=== PATIENT | male | born 1955 | race African-American/Black ===

== ENCOUNTER 2021-05-07 12:50 | Inpatient (IN) ==
[2021-05-07] MEDS ORDERED: SODIUM CHLORIDE 0.9% 1,000 ML IV STA (12:58)
[2021-05-07] MEDS ORDERED: CLINDAMYCIN INJ 600 MG/50 ML PREMIX IV STA (14:10)
[2021-05-07] MEDS ORDERED: LEVOFLOXACIN INJ 750 MG in PREMIX 1 EACH IV STA (14:10)
[2021-05-07 14:15] LABS: Basophils % 0.1 % (0.0-0.8); Eosinophils # 0.3 10*3/uL (0.0-0.87); Eosinophils % 2.9 % (0.00-10.9); Hematocrit 36.4 VOL% (42.0-52.0); Hemoglobin 10.9 GM/DL (14.0-18.0); Immature Granulocytes % 0.6 %; Immature Granulocytes Absolute 0.05 #; Lymphocytes # 1.1 10*3/uL (1.4-4.0); Lymphocytes % 13.3 % (21.2-54.2); Mean Corpuscular HGB Conc 29.9 GM/DL (32-36); Mean Corpuscular Volume 105.2 FL (87-102); Monocytes % 8.4 % (1.7-12.7); Neutrophils % 74.7 % (38.7-73.9); Platelet Count 312 T/CUMM (130-400); Red Blood Count 3.46 MC/CUMM (3.8-5.5); Red Cell Distribution Width 13.2 % (9.3-17.3); White Blood Count 8.5 T/CUMM (4-12)
[2021-05-07 14:35] LABS: Albumin 2.8 G/DL (3.4-5.0); Bilirubin,Total 0.6 MG/DL (0.20-1.00); Calcium 9.7 MG/DL (8.5-10.1); Osmolality,Calculated 307.1 MOS/KG (273-304); Total Protein 8.3 G/DL (6.4-8.2)
[2021-05-07] MEDS ORDERED: GLUCAGON 1 MG VIAL IM PRN (15:20)
[2021-05-07] MEDS ORDERED: DEXTROSE 50% 25 GM/50 ML VIAL IV PRN (15:20)
[2021-05-07] MEDS ORDERED: ONDANSETRON 4 MG/2 ML VIAL IV PRN (15:20)
[2021-05-07] MEDS ORDERED: SODIUM CHLORIDE 0.9% 1,000 ML IV SCH (15:30)
[2021-05-07] MEDS ORDERED: VANCOMYCIN INJ 1,000 MG in SODIUM CHLORIDE 0.9% 250 ML IV SCH (21:00)
[2021-05-07] MEDS: PIPERACILLIN/TAZOBACTAM 3,375 MG in SODIUM CHLORIDE 0.9% 100 ML IV SCH (22:03)
[2021-05-07] MEDS ORDERED: CLINDAMYCIN INJ 600 MG/50 ML PREMIX IV ONE (23:00)
[2021-05-08] MEDS: DEXTROSE 5% NACL 0.45% 1,000 ML IV SCH ×2 (03:32→14:27)
[2021-05-08] MEDS: PIPERACILLIN/TAZOBACTAM 3,375 MG in SODIUM CHLORIDE 0.9% 100 ML IV SCH ×3 (03:34→16:33)
[2021-05-08 06:02] LABS: Basophils % 0.4 % (0.0-0.8); Eosinophils # 0.3 10*3/uL (0.0-0.87); Eosinophils % 3.2 % (0.00-10.9); Hematocrit 41.1 VOL% (42.0-52.0); Hemoglobin 12.4 GM/DL (14.0-18.0); Immature Granulocytes % 0.3 %; Immature Granulocytes Absolute 0.02 #; Lymphocytes # 1.5 10*3/uL (1.4-4.0); Lymphocytes % 19.2 % (21.2-54.2); Mean Corpuscular HGB Conc 30.2 GM/DL (32-36); Mean Platelet Volume 11.5 FL (9.6-12.0); Monocytes % 10.1 % (1.7-12.7); Neutrophils % 66.8 % (38.7-73.9); Platelet Count 264 T/CUMM (130-400); Red Blood Count 3.84 MC/CUMM (3.8-5.5); Red Cell Distribution Width 13.1 % (9.3-17.3); White Blood Count 7.9 T/CUMM (4-12)
[2021-05-08 06:38] LABS: Calcium 9.6 MG/DL (8.5-10.1); Osmolality,Calculated 309.6 MOS/KG (273-304); Potassium 4.8 MMOL/L (3.5-5.1)
[2021-05-08] MEDS ORDERED: LIDOCAINE 1%/EPI INJ 20 ML VIAL ONE (06:50)
[2021-05-08] MEDS ORDERED: BUPIVACAINE MPF 0.25% 30 ML VIAL ONE (06:50)
[2021-05-08] MEDS ORDERED: MIDAZOLAM 2 MG/2 ML VIAL ONE (07:27)
[2021-05-08] MEDS ORDERED: PHENYLEPHRINE 1 MG/10 ML SYRINGE IV ONE (07:40)
[2021-05-08] MEDS ORDERED: propofoL 200 MG/20 ML VIAL IV ONE (07:46)
[2021-05-08] MEDS ORDERED: SEVOFLURANE 1 UNIT/15 MINUTE INH ONE (07:46)
[2021-05-08] MEDS ORDERED: fentaNYL 100 MCG/2 ML VIAL ONE (07:46)
[2021-05-08] MEDS ORDERED: ONDANSETRON 4 MG/2 ML VIAL ONE (07:46)
[2021-05-08] MEDS ORDERED: ACETAMINOPHEN 325 MG TABLET PO PRN (12:07)
[2021-05-08] MEDS ORDERED: BETHANECHOL 10 MG TABLET PO SCH (15:00)
[2021-05-08] MEDS: BETHANECHOL 10 MG TABLET PO SCH ×2 (16:24→22:20)
[2021-05-08] MEDS: levETIRAcetam 500 MG TABLET PO SCH ×2 (16:25→22:19)
[2021-05-08] MEDS: METOCLOPRAMIDE 5 MG TABLET PO SCH ×2 (16:25→22:20)
[2021-05-08] MEDS: QUEtiapine 25 MG TABLET PO SCH (22:20)
[2021-05-08] MEDS: DEXTROSE 5% 1,000 ML IV SCH (22:22)
[2021-05-09] MEDS: PIPERACILLIN/TAZOBACTAM 3,375 MG in SODIUM CHLORIDE 0.9% 100 ML IV SCH ×3 (06:00→16:40)
[2021-05-09 07:09] LABS: Basophils % 0.1 % (0.0-0.8); Eosinophils # 0.2 10*3/uL (0.0-0.87); Eosinophils % 3.6 % (0.00-10.9); Hematocrit 40.8 VOL% (42.0-52.0); Hemoglobin 12.4 GM/DL (14.0-18.0); Immature Granulocytes % 0.7 %; Immature Granulocytes Absolute 0.05 #; Lymphocytes # 1.7 10*3/uL (1.4-4.0); Lymphocytes % 25.4 % (21.2-54.2); Mean Corpuscular HGB Conc 30.4 GM/DL (32-36); Mean Corpuscular Volume 104.6 FL (87-102); Mean Platelet Volume 11.1 FL (9.6-12.0); Monocytes % 8.8 % (1.7-12.7); Neutrophils % 61.4 % (38.7-73.9); Platelet Count 298 T/CUMM (130-400); Red Cell Distribution Width 12.8 % (9.3-17.3); White Blood Count 6.7 T/CUMM (4-12)
[2021-05-09 07:24] LABS: Calcium 9.5 MG/DL (8.5-10.1); Osmolality,Calculated 313.2 MOS/KG (273-304); Potassium 4.2 MMOL/L (3.5-5.1)
[2021-05-09] MEDS: BETHANECHOL 10 MG TABLET PO SCH ×3 (10:00→21:06)
[2021-05-09] MEDS: levETIRAcetam 500 MG TABLET PO SCH ×2 (10:00→21:05)
[2021-05-09] MEDS: QUEtiapine 25 MG TABLET PO SCH ×2 (10:00→21:06)
[2021-05-09] MEDS: METOCLOPRAMIDE 5 MG TABLET PO SCH ×4 (10:00→21:06)
[2021-05-09] MEDS: SODIUM HYPOCHLORITE 0.25% IRRIG 473 ML BOTTLE TOP SCH (11:11)
[2021-05-09] MEDS: DEXTROSE 5% 1,000 ML IV SCH (11:27)
[2021-05-09] MEDS ORDERED: QUEtiapine 25 MG TABLET PO ONE (13:00)
[2021-05-09] MEDS ORDERED: ACETAMINOPHEN 325 MG/10.15 ML UDCUP PO PRN (14:03)
[2021-05-09] MEDS ORDERED: DEXTROSE 50% 25 GM/50 ML VIAL IV PRN (16:22)
[2021-05-10] MEDS: PIPERACILLIN/TAZOBACTAM 3,375 MG in SODIUM CHLORIDE 0.9% 100 ML IV SCH ×2 (01:04→11:34)
[2021-05-10 07:01] LABS: Basophils % 0.2 % (0.0-0.8); Eosinophils # 0.3 10*3/uL (0.0-0.87); Eosinophils % 5.1 % (0.00-10.9); Hematocrit 36.2 VOL% (42.0-52.0); Hemoglobin 11.1 GM/DL (14.0-18.0); Immature Granulocytes % 0.2 %; Immature Granulocytes Absolute 0.01 #; Lymphocytes # 1.7 10*3/uL (1.4-4.0); Lymphocytes % 31.4 % (21.2-54.2); Mean Corpuscular HGB Conc 30.7 GM/DL (32-36); Mean Corpuscular Volume 104.3 FL (87-102); Mean Platelet Volume 11.1 FL (9.6-12.0); Monocytes % 8.6 % (1.7-12.7); Neutrophils % 54.5 % (38.7-73.9); Platelet Count 282 T/CUMM (130-400); Red Blood Count 3.47 MC/CUMM (3.8-5.5); Red Cell Distribution Width 12.7 % (9.3-17.3); White Blood Count 5.3 T/CUMM (4-12)
[2021-05-10] MEDS: QUEtiapine 25 MG TABLET PO SCH ×2 (10:42→22:45)
[2021-05-10] MEDS: METOCLOPRAMIDE 5 MG TABLET PO SCH ×2 (10:42→13:52)
[2021-05-10] MEDS: levETIRAcetam 500 MG TABLET PO SCH ×2 (10:43→22:45)
[2021-05-10] MEDS: SODIUM HYPOCHLORITE 0.25% IRRIG 473 ML BOTTLE TOP SCH (10:43)
[2021-05-10 11:15] LABS: Calcium 9.2 MG/DL (8.5-10.1); Osmolality,Calculated 301.1 MOS/KG (273-304); Potassium 4.2 MMOL/L (3.5-5.1)
[2021-05-10] MEDS: BETHANECHOL 10 MG TABLET PO SCH ×3 (12:35→22:46)
[2021-05-10] MEDS: LINEZOLID 600 MG TABLET PO SCH (22:45)
[2021-05-11 06:31] LABS: Basophils % 0.5 % (0.0-0.8); Eosinophils # 0.2 10*3/uL (0.0-0.87); Eosinophils % 4.4 % (0.00-10.9); Hematocrit 38.1 VOL% (42.0-52.0); Hemoglobin 11.4 GM/DL (14.0-18.0); Immature Granulocytes % 0.2 %; Immature Granulocytes Absolute 0.01 #; Lymphocytes # 1.4 10*3/uL (1.4-4.0); Mean Corpuscular HGB Conc 29.9 GM/DL (32-36); Mean Corpuscular Volume 102.7 FL (87-102); Mean Platelet Volume 10.7 FL (9.6-12.0); Monocytes % 2.8 % (1.7-12.7); Neutrophils % 61.1 % (38.7-73.9); Platelet Count 282 T/CUMM (130-400); Red Blood Count 3.71 MC/CUMM (3.8-5.5); Red Cell Distribution Width 12.5 % (9.3-17.3); White Blood Count 4.4 T/CUMM (4-12)
[2021-05-11 06:45] LABS: Calcium 9.2 MG/DL (8.5-10.1); Potassium 4.2 MMOL/L (3.5-5.1)
[2021-05-11] MEDS: QUEtiapine 25 MG TABLET PO SCH (09:14)
[2021-05-11] MEDS: LINEZOLID 600 MG TABLET PO SCH (09:14)
[2021-05-11] MEDS: levETIRAcetam 500 MG TABLET PO SCH (09:14)
[2021-05-11] MEDS: SODIUM HYPOCHLORITE 0.25% IRRIG 473 ML BOTTLE TOP SCH (09:15)
[2021-05-11] MEDS: BETHANECHOL 10 MG TABLET PO SCH (09:15)
[2021-05-11 12:02] VITALS: BP 112/73
== END 2021-05-11 14:00 | disposition home health service (06) | DRG 987 ==
LOC: N.ED 12:50 → N.EDINP 14:35 → N.5E 19:09
PROVIDERS: ADMIT Hospitalist; ATTEND Hospitalist

== ENCOUNTER 2021-06-11 13:09 | Inpatient (IN) ==
[2021-06-11 14:51] LABS: Basophils % 0.5 % (0.0-0.8); Eosinophils # 0.3 10*3/uL (0.0-0.87); Eosinophils % 4.7 % (0.00-10.9); Hematocrit 41.6 VOL% (42.0-52.0); Hemoglobin 13.7 GM/DL (14.0-18.0); Immature Granulocytes % 0.3 %; Immature Granulocytes Absolute 0.02 #; Lymphocytes # 1.7 10*3/uL (1.4-4.0); Lymphocytes % 29.2 % (21.2-54.2); Mean Corpuscular HGB Conc 32.9 GM/DL (32-36); Mean Corpuscular Volume 92.2 FL (87-102); Mean Platelet Volume 8.8 FL (9.6-12.0); Monocytes % 8.9 % (1.7-12.7); Neutrophils % 56.4 % (38.7-73.9); Platelet Count 334 T/CUMM (130-400); Red Blood Count 4.51 MC/CUMM (3.8-5.5); Red Cell Distribution Width 12.6 % (9.3-17.3); White Blood Count 5.7 T/CUMM (4-12)
[2021-06-11 15:28] LABS: Albumin 3.1 G/DL (3.4-5.0); Bilirubin,Total 0.4 MG/DL (0.20-1.00); Calcium 10.1 MG/DL (8.5-10.1); Osmolality,Calculated 263.4 MOS/KG (273-304); Potassium 4.3 MMOL/L (3.5-5.1); Total Protein 7.9 G/DL (6.4-8.2)
[2021-06-11] MEDS ORDERED: ONDANSETRON 4 MG/2 ML VIAL IV PRN (18:32)
[2021-06-11] MEDS ORDERED: ACETAMINOPHEN 325 MG TABLET PO PRN (18:32)
[2021-06-11] MEDS ORDERED: PIPERACILLIN/TAZOBACTAM 3,375 MG VIAL IV ONE (18:37)
[2021-06-11] MEDS: SODIUM CHLORIDE 0.9% 1,000 ML IV SCH (22:33)
[2021-06-11] MEDS: PIPERACILLIN/TAZOBACTAM 3,375 MG in SODIUM CHLORIDE 0.9% 100 ML IV SCH (22:34)
[2021-06-11] MEDS: DOCUSATE SODIUM 100 MG CAPSULE PO SCH (22:34)
[2021-06-12] MEDS: PIPERACILLIN/TAZOBACTAM 3,375 MG in SODIUM CHLORIDE 0.9% 100 ML IV SCH ×3 (04:38→21:22)
[2021-06-12] MEDS: SODIUM CHLORIDE 0.9% 1,000 ML IV SCH ×3 (04:38→17:33)
[2021-06-12 05:32] LABS: Basophils % 0.3 % (0.0-0.8); Eosinophils # 0.3 10*3/uL (0.0-0.87); Eosinophils % 4.9 % (0.00-10.9); Hematocrit 37.7 VOL% (42.0-52.0); Hemoglobin 12.2 GM/DL (14.0-18.0); Immature Granulocytes % 0.2 %; Immature Granulocytes Absolute 0.01 #; Lymphocytes # 1.7 10*3/uL (1.4-4.0); Lymphocytes % 28.1 % (21.2-54.2); Mean Corpuscular HGB Conc 32.4 GM/DL (32-36); Mean Corpuscular Volume 92.6 FL (87-102); Mean Platelet Volume 8.8 FL (9.6-12.0); Monocytes % 9.1 % (1.7-12.7); Neutrophils % 57.4 % (38.7-73.9); Platelet Count 308 T/CUMM (130-400); Red Blood Count 4.07 MC/CUMM (3.8-5.5); Red Cell Distribution Width 12.5 % (9.3-17.3); White Blood Count 6.2 T/CUMM (4-12)
[2021-06-12 06:01] LABS: Calcium 8.8 MG/DL (8.5-10.1); Osmolality,Calculated 259.7 MOS/KG (273-304); Potassium 3.8 MMOL/L (3.5-5.1)
[2021-06-12] MEDS ORDERED: ACETAMINOPHEN 325 MG/10.15 ML UDCUP PO PRN (07:37)
[2021-06-12] MEDS ORDERED: BETHANECHOL 10 MG TABLET PO SCH (08:00)
[2021-06-12] MEDS: PANTOPRAZOLE 40 MG TABLET PO SCH (08:50)
[2021-06-12] MEDS: METOCLOPRAMIDE 5 MG TABLET PO SCH ×4 (08:50→21:26)
[2021-06-12] MEDS: DOCUSATE SODIUM 100 MG CAPSULE PO SCH ×2 (08:50→21:26)
[2021-06-12] MEDS: QUEtiapine 25 MG TABLET PO SCH ×2 (08:50→21:25)
[2021-06-12] MEDS ORDERED: levETIRAcetam 500 MG TABLET PO SCH (09:00)
[2021-06-12] MEDS ORDERED: INFLUENZA VIRUS VACCINE 0.5 ML SYRINGE IM ONE (10:54)
[2021-06-12] MEDS: SODIUM HYPOCHLORITE 0.25% IRRIG 473 ML BOTTLE TOP SCH (11:40)
[2021-06-12] MEDS: levETIRAcetam 500 MG TABLET PO SCH (21:24)
[2021-06-12] MEDS: MEMANTINE 5 MG TABLET PO SCH (21:26)
[2021-06-13] MEDS: PIPERACILLIN/TAZOBACTAM 3,375 MG in SODIUM CHLORIDE 0.9% 100 ML IV SCH ×3 (04:21→21:37)
[2021-06-13] MEDS: SODIUM CHLORIDE 0.9% 1,000 ML IV SCH ×3 (04:31→17:38)
[2021-06-13 05:44] LABS: Calcium 8.4 MG/DL (8.5-10.1); Potassium 3.5 MMOL/L (3.5-5.1)
[2021-06-13] MEDS: METOCLOPRAMIDE 5 MG TABLET PO SCH ×4 (08:54→21:38)
[2021-06-13] MEDS: QUEtiapine 25 MG TABLET PO SCH ×2 (08:54→21:38)
[2021-06-13] MEDS: levETIRAcetam 500 MG TABLET PO SCH ×2 (08:54→21:37)
[2021-06-13] MEDS: MEMANTINE 5 MG TABLET PO SCH ×2 (08:54→21:38)
[2021-06-13] MEDS: DOCUSATE SODIUM 100 MG CAPSULE PO SCH ×2 (08:54→21:37)
[2021-06-13] MEDS: PANTOPRAZOLE 40 MG TABLET PO SCH (08:54)
[2021-06-13] MEDS: SODIUM HYPOCHLORITE 0.25% IRRIG 473 ML BOTTLE TOP SCH (09:52)
[2021-06-14] MEDS: SODIUM CHLORIDE 0.9% 1,000 ML IV SCH ×2 (02:20→14:00)
[2021-06-14] MEDS: PIPERACILLIN/TAZOBACTAM 3,375 MG in SODIUM CHLORIDE 0.9% 100 ML IV SCH ×2 (05:01→12:51)
[2021-06-14 06:16] LABS: Calcium 8.7 MG/DL (8.5-10.1); Osmolality,Calculated 273.7 MOS/KG (273-304); Potassium 3.5 MMOL/L (3.5-5.1)
[2021-06-14] MEDS: SODIUM HYPOCHLORITE 0.25% IRRIG 473 ML BOTTLE TOP SCH (09:48)
[2021-06-14] MEDS: MEMANTINE 5 MG TABLET PO SCH ×2 (09:48→21:20)
[2021-06-14] MEDS: levETIRAcetam 500 MG TABLET PO SCH ×2 (09:48→21:20)
[2021-06-14] MEDS: DOCUSATE SODIUM 100 MG CAPSULE PO SCH ×2 (09:48→21:20)
[2021-06-14] MEDS: PANTOPRAZOLE 40 MG TABLET PO SCH (09:49)
[2021-06-14] MEDS: QUEtiapine 25 MG TABLET PO SCH ×2 (09:49→21:20)
[2021-06-14] MEDS: METOCLOPRAMIDE 5 MG TABLET PO SCH ×4 (10:47→21:20)
[2021-06-14] MEDS: ceFAZolin 2,000 MG/50 ML DUPLEX IV SCH ×2 (17:21→21:21)
[2021-06-15] MEDS: ceFAZolin 2,000 MG/50 ML DUPLEX IV SCH ×3 (06:08→22:05)
[2021-06-15] MEDS: SODIUM CHLORIDE 0.9% 1,000 ML IV SCH ×2 (06:47→16:54)
[2021-06-15 07:07] LABS: Calcium 8.9 MG/DL (8.5-10.1); Osmolality,Calculated 273.5 MOS/KG (273-304); Potassium 3.7 MMOL/L (3.5-5.1)
[2021-06-15] MEDS: METOCLOPRAMIDE 5 MG TABLET PO SCH ×4 (08:12→22:02)
[2021-06-15] MEDS: MEMANTINE 5 MG TABLET PO SCH ×2 (08:12→22:02)
[2021-06-15] MEDS: PANTOPRAZOLE 40 MG TABLET PO SCH (08:17)
[2021-06-15] MEDS: levETIRAcetam 500 MG TABLET PO SCH ×2 (08:18→22:02)
[2021-06-15] MEDS: DOCUSATE SODIUM 100 MG CAPSULE PO SCH ×2 (08:18→22:02)
[2021-06-15] MEDS: QUEtiapine 25 MG TABLET PO SCH ×2 (08:19→22:03)
[2021-06-15 08:54] LABS: Basophils % 0.8 % (0.0-0.8); Eosinophils # 0.2 10*3/uL (0.0-0.87); Eosinophils % 4.2 % (0.00-10.9); Hematocrit 36.2 VOL% (42.0-52.0); Hemoglobin 11.6 GM/DL (14.0-18.0); Immature Granulocytes % 0.4 %; Immature Granulocytes Absolute 0.02 #; Lymphocytes # 1.7 10*3/uL (1.4-4.0); Lymphocytes % 33.9 % (21.2-54.2); Mean Corpuscular Volume 95.3 FL (87-102); Mean Platelet Volume 9.2 FL (9.6-12.0); Monocytes % 11.9 % (1.7-12.7); Neutrophils % 48.8 % (38.7-73.9); Platelet Count 319 T/CUMM (130-400); Red Cell Distribution Width 12.6 % (9.3-17.3)
[2021-06-15] MEDS: SODIUM HYPOCHLORITE 0.25% IRRIG 473 ML BOTTLE TOP SCH (18:34)
[2021-06-16] MEDS: SODIUM CHLORIDE 0.9% 1,000 ML IV SCH ×2 (04:00→15:18)
[2021-06-16] MEDS: ceFAZolin 2,000 MG/50 ML DUPLEX IV SCH ×3 (05:47→22:25)
[2021-06-16 06:27] LABS: Basophils % 0.4 % (0.0-0.8); Eosinophils # 0.2 10*3/uL (0.0-0.87); Eosinophils % 4.4 % (0.00-10.9); Hematocrit 33.4 VOL% (42.0-52.0); Hemoglobin 10.9 GM/DL (14.0-18.0); Immature Granulocytes % 0.2 %; Immature Granulocytes Absolute 0.01 #; Lymphocytes # 1.6 10*3/uL (1.4-4.0); Lymphocytes % 28.5 % (21.2-54.2); Mean Corpuscular HGB Conc 32.6 GM/DL (32-36); Mean Corpuscular Volume 94.1 FL (87-102); Mean Platelet Volume 9.4 FL (9.6-12.0); Neutrophils % 57.5 % (38.7-73.9); Platelet Count 317 T/CUMM (130-400); Red Blood Count 3.55 MC/CUMM (3.8-5.5); Red Cell Distribution Width 12.6 % (9.3-17.3); White Blood Count 5.5 T/CUMM (4-12)
[2021-06-16 06:42] LABS: Calcium 8.9 MG/DL (8.5-10.1); Osmolality,Calculated 278.3 MOS/KG (273-304); Potassium 3.7 MMOL/L (3.5-5.1)
[2021-06-16] MEDS: METOCLOPRAMIDE 5 MG TABLET PO SCH ×4 (08:00→20:32)
[2021-06-16] MEDS: MEMANTINE 5 MG TABLET PO SCH ×2 (08:01→20:32)
[2021-06-16] MEDS: QUEtiapine 25 MG TABLET PO SCH ×2 (08:01→20:32)
[2021-06-16] MEDS: PANTOPRAZOLE 40 MG TABLET PO SCH (08:02)
[2021-06-16] MEDS: DOCUSATE SODIUM 100 MG CAPSULE PO SCH ×2 (08:03→20:32)
[2021-06-16] MEDS: levETIRAcetam 500 MG TABLET PO SCH ×2 (08:04→20:32)
[2021-06-16] MEDS: SODIUM HYPOCHLORITE 0.25% IRRIG 473 ML BOTTLE TOP SCH (10:21)
[2021-06-17] MEDS: SODIUM CHLORIDE 0.9% 1,000 ML IV SCH ×2 (02:19→12:38)
[2021-06-17 05:57] LABS: Basophils % 0.6 % (0.0-0.8); Eosinophils # 0.3 10*3/uL (0.0-0.87); Eosinophils % 6.9 % (0.00-10.9); Hematocrit 31.9 VOL% (42.0-52.0); Hemoglobin 10.4 GM/DL (14.0-18.0); Immature Granulocytes % 0.2 %; Immature Granulocytes Absolute 0.01 #; Lymphocytes # 1.8 10*3/uL (1.4-4.0); Lymphocytes % 36.4 % (21.2-54.2); Mean Corpuscular HGB Conc 32.6 GM/DL (32-36); Mean Corpuscular Volume 93.8 FL (87-102); Mean Platelet Volume 9.3 FL (9.6-12.0); Monocytes % 11.2 % (1.7-12.7); Neutrophils % 44.7 % (38.7-73.9); Platelet Count 284 T/CUMM (130-400); Red Cell Distribution Width 12.7 % (9.3-17.3); White Blood Count 4.8 T/CUMM (4-12)
[2021-06-17] MEDS: ceFAZolin 2,000 MG/50 ML DUPLEX IV SCH ×3 (06:05→21:48)
[2021-06-17 06:16] LABS: Calcium 8.6 MG/DL (8.5-10.1); Osmolality,Calculated 277.3 MOS/KG (273-304); Potassium 3.7 MMOL/L (3.5-5.1)
[2021-06-17] MEDS: DOCUSATE SODIUM 100 MG CAPSULE PO SCH ×2 (08:26→20:48)
[2021-06-17] MEDS: MEMANTINE 5 MG TABLET PO SCH ×2 (08:27→20:48)
[2021-06-17] MEDS: METOCLOPRAMIDE 5 MG TABLET PO SCH ×4 (08:27→20:48)
[2021-06-17] MEDS: QUEtiapine 25 MG TABLET PO SCH ×2 (08:27→20:48)
[2021-06-17] MEDS: levETIRAcetam 500 MG TABLET PO SCH ×2 (08:27→20:48)
[2021-06-17] MEDS: PANTOPRAZOLE 40 MG TABLET PO SCH (08:28)
[2021-06-17] MEDS: SODIUM HYPOCHLORITE 0.25% IRRIG 473 ML BOTTLE TOP SCH (10:18)
[2021-06-18] MEDS: SODIUM CHLORIDE 0.9% 1,000 ML IV SCH ×2 (01:50→11:58)
[2021-06-18] MEDS: ceFAZolin 2,000 MG/50 ML DUPLEX IV SCH ×3 (05:41→21:37)
[2021-06-18] MEDS: QUEtiapine 25 MG TABLET PO SCH ×2 (09:03→20:51)
[2021-06-18] MEDS: MEMANTINE 5 MG TABLET PO SCH ×2 (09:03→20:52)
[2021-06-18] MEDS: DOCUSATE SODIUM 100 MG CAPSULE PO SCH ×2 (09:03→20:52)
[2021-06-18] MEDS: METOCLOPRAMIDE 5 MG TABLET PO SCH ×4 (09:04→20:52)
[2021-06-18] MEDS: levETIRAcetam 500 MG TABLET PO SCH ×2 (09:04→20:51)
[2021-06-18] MEDS: PANTOPRAZOLE 40 MG TABLET PO SCH (09:05)
[2021-06-18] MEDS: SODIUM HYPOCHLORITE 0.25% IRRIG 473 ML BOTTLE TOP SCH (10:00)
[2021-06-19] MEDS: SODIUM CHLORIDE 0.9% 1,000 ML IV SCH ×4 (00:20→23:37)
[2021-06-19] MEDS: ceFAZolin 2,000 MG/50 ML DUPLEX IV SCH ×3 (05:43→22:36)
[2021-06-19] MEDS: levETIRAcetam 500 MG TABLET PO SCH ×2 (09:32→20:08)
[2021-06-19] MEDS: PANTOPRAZOLE 40 MG TABLET PO SCH (09:32)
[2021-06-19] MEDS: MEMANTINE 5 MG TABLET PO SCH ×2 (09:32→20:09)
[2021-06-19] MEDS: QUEtiapine 25 MG TABLET PO SCH ×2 (09:33→20:08)
[2021-06-19] MEDS: SODIUM HYPOCHLORITE 0.25% IRRIG 473 ML BOTTLE TOP SCH (09:33)
[2021-06-19] MEDS: METOCLOPRAMIDE 5 MG TABLET PO SCH ×4 (09:33→20:08)
[2021-06-19] MEDS: DOCUSATE SODIUM 100 MG CAPSULE PO SCH ×2 (09:33→20:09)
[2021-06-20] MEDS: ceFAZolin 2,000 MG/50 ML DUPLEX IV SCH (05:42)
[2021-06-20] MEDS: levETIRAcetam 500 MG TABLET PO SCH (08:48)
[2021-06-20] MEDS: METOCLOPRAMIDE 5 MG TABLET PO SCH ×2 (08:48→12:04)
[2021-06-20] MEDS: MEMANTINE 5 MG TABLET PO SCH (08:48)
[2021-06-20] MEDS: PANTOPRAZOLE 40 MG TABLET PO SCH (08:49)
[2021-06-20] MEDS: QUEtiapine 25 MG TABLET PO SCH (08:49)
[2021-06-20] MEDS: DOCUSATE SODIUM 100 MG CAPSULE PO SCH (10:36)
[2021-06-20] MEDS: SODIUM HYPOCHLORITE 0.25% IRRIG 473 ML BOTTLE TOP SCH (10:37)
[2021-06-20] MEDS: SODIUM CHLORIDE 0.9% 1,000 ML IV SCH (12:04)
[2021-06-20 13:49] VITALS: BP 138/69
== END 2021-06-20 16:07 | disposition home health service (06) | DRG 394 ==
LOC: N.ED 13:09 → N.EDINP 13:09 → N.3E 20:12
PROVIDERS: ADMIT Internal Medicine; ATTEND Internal Medicine

== ENCOUNTER 2021-08-29 16:34 | Observation (INO) ==
[2021-08-29 17:32] LABS: Basophils % 0.2 % (0.0-0.8); Eosinophils % 0.1 % (0.00-10.9); Hematocrit 39.9 VOL% (42.0-52.0); Hemoglobin 13.7 GM/DL (14.0-18.0); Immature Granulocytes % 0.5 %; Immature Granulocytes Absolute 0.05 #; Lymphocytes # 1.3 10*3/uL (1.4-4.0); Lymphocytes % 12.5 % (21.2-54.2); Mean Corpuscular HGB Conc 34.3 GM/DL (32-36); Mean Corpuscular Volume 88.9 FL (87-102); Monocytes % 8.6 % (1.7-12.7); Neutrophils % 78.1 % (38.7-73.9); Platelet Count 203 T/CUMM (130-400); Red Blood Count 4.49 MC/CUMM (3.8-5.5); Red Cell Distribution Width 12.7 % (9.3-17.3); White Blood Count 10.1 T/CUMM (4-12)
[2021-08-29 17:48] LABS: Calcium 9.5 MG/DL (8.5-10.1); Osmolality,Calculated 274.7 MOS/KG (273-304); Potassium 3.1 MMOL/L (3.5-5.1)
[2021-08-29] MEDS ORDERED: PHENYTOIN INJ 1,000 MG in SODIUM CHLORIDE 0.9% 100 ML IV STA (17:49)
[2021-08-29] MEDS ORDERED: LORazepam 2 MG/1 ML VIAL IV STA (17:50)
[2021-08-29] MEDS ORDERED: ONDANSETRON 4 MG/2 ML VIAL IV PRN (18:04)
[2021-08-29] MEDS ORDERED: ACETAMINOPHEN 325 MG TABLET PO PRN (18:04)
[2021-08-29] MEDS: ENOXAPARIN 40 MG/0.4 ML SYRINGE SUBCUT SCH (18:33)
[2021-08-29] MEDS: SODIUM CHLORIDE 0.45% 1,000 ML IV SCH (18:33)
[2021-08-29] MEDS: PHENYTOIN ER 100 MG CAPSULE PO SCH (22:30)
[2021-08-29] MEDS: MEMANTINE 5 MG TABLET PO SCH (22:30)
[2021-08-29] MEDS: DOCUSATE SODIUM 100 MG CAPSULE PO SCH (22:52)
[2021-08-29] MEDS: FAMOTIDINE 20 MG TABLET PO SCH (22:53)
[2021-08-30] MEDS: SODIUM CHLORIDE 0.45% 1,000 ML IV SCH (01:30)
[2021-08-30] MEDS: PHENYTOIN ER 100 MG CAPSULE PO SCH ×4 (04:00→20:24)
[2021-08-30] MEDS: MEMANTINE 5 MG TABLET PO SCH ×3 (04:01→20:24)
[2021-08-30] MEDS ORDERED: POTASSIUM CHLORIDE RIDER 10 MEQ/100 ML PREMIX IV PRN (08:55)
[2021-08-30] MEDS ORDERED: POTASSIUM BICARB EFFERVESCENT 20 MEQ TAB.EFF PER TUBE PRN (08:55)
[2021-08-30] MEDS: DOCUSATE SODIUM 100 MG CAPSULE PO SCH ×2 (10:15→20:24)
[2021-08-30] MEDS: levETIRAcetam 500 MG TABLET PO SCH ×2 (10:15→20:23)
[2021-08-30] MEDS: FAMOTIDINE 20 MG TABLET PO SCH ×2 (10:16→20:23)
[2021-08-30] MEDS: POTASSIUM CHLORIDE 20 MEQ TABLET PO PRN ×4 (16:06→22:15)
[2021-08-30] MEDS ORDERED: LORazepam 2 MG/1 ML VIAL IM PRN (16:29)
[2021-08-30] MEDS: ENOXAPARIN 40 MG/0.4 ML SYRINGE SUBCUT SCH (17:41)
[2021-08-31 06:56] LABS: Calcium 9.5 MG/DL (8.5-10.1); Osmolality,Calculated 276.4 MOS/KG (273-304); Potassium 4.4 MMOL/L (3.5-5.1)
[2021-08-31] MEDS: PHENYTOIN ER 100 MG CAPSULE PO SCH ×3 (09:00→21:59)
[2021-08-31] MEDS: levETIRAcetam 500 MG TABLET PO SCH ×2 (09:00→21:58)
[2021-08-31] MEDS: FAMOTIDINE 20 MG TABLET PO SCH ×2 (09:00→21:58)
[2021-08-31] MEDS: MEMANTINE 5 MG TABLET PO SCH ×2 (09:00→21:59)
[2021-08-31] MEDS: DOCUSATE SODIUM 100 MG CAPSULE PO SCH ×2 (09:00→21:59)
[2021-08-31] MEDS: SODIUM CHLORIDE 0.45% 1,000 ML IV SCH ×3 (12:27→17:36)
[2021-08-31] MEDS: ENOXAPARIN 40 MG/0.4 ML SYRINGE SUBCUT SCH (17:37)
[2021-08-31] MEDS: QUEtiapine 25 MG TABLET PO SCH (23:59)
[2021-09-01] MEDS: SODIUM CHLORIDE 0.45% 1,000 ML IV SCH ×2 (04:14→22:56)
[2021-09-01 05:57] LABS: Calcium 8.8 MG/DL (8.5-10.1); Osmolality,Calculated 278.3 MOS/KG (273-304); Potassium 3.5 MMOL/L (3.5-5.1)
[2021-09-01] MEDS: FAMOTIDINE 20 MG TABLET PO SCH ×2 (10:11→21:17)
[2021-09-01] MEDS: levETIRAcetam 500 MG TABLET PO SCH ×2 (10:11→21:17)
[2021-09-01] MEDS: DOCUSATE SODIUM 100 MG CAPSULE PO SCH ×2 (10:11→21:17)
[2021-09-01] MEDS: MEMANTINE 5 MG TABLET PO SCH ×2 (10:11→21:18)
[2021-09-01] MEDS: QUEtiapine 25 MG TABLET PO SCH ×2 (10:12→21:18)
[2021-09-01] MEDS: PHENYTOIN ER 100 MG CAPSULE PO SCH ×3 (10:12→21:18)
[2021-09-01] MEDS: ENOXAPARIN 40 MG/0.4 ML SYRINGE SUBCUT SCH (17:58)
[2021-09-02] MEDS: SODIUM CHLORIDE 0.45% 1,000 ML IV SCH ×2 (02:24→19:28)
[2021-09-02 06:19] LABS: Basophils % 0.2 % (0.0-0.8); Eosinophils # 0.1 10*3/uL (0.0-0.87); Eosinophils % 2.3 % (0.00-10.9); Hematocrit 39.5 VOL% (42.0-52.0); Immature Granulocytes % 0.2 %; Immature Granulocytes Absolute 0.01 #; Lymphocytes # 1.2 10*3/uL (1.4-4.0); Mean Corpuscular HGB Conc 32.9 GM/DL (32-36); Mean Corpuscular Volume 93.2 FL (87-102); Mean Platelet Volume 11.1 FL (9.6-12.0); Monocytes % 9.1 % (1.7-12.7); Neutrophils % 66.2 % (38.7-73.9); Platelet Count 164 T/CUMM (130-400); Red Blood Count 4.24 MC/CUMM (3.8-5.5); Red Cell Distribution Width 12.8 % (9.3-17.3); White Blood Count 5.3 T/CUMM (4-12)
[2021-09-02 06:51] LABS: Calcium 8.9 MG/DL (8.5-10.1); Osmolality,Calculated 273.5 MOS/KG (273-304); Potassium 3.3 MMOL/L (3.5-5.1)
[2021-09-02] MEDS: QUEtiapine 25 MG TABLET PO SCH ×2 (10:28→21:39)
[2021-09-02] MEDS: MEMANTINE 5 MG TABLET PO SCH ×2 (10:28→21:39)
[2021-09-02] MEDS: FAMOTIDINE 20 MG TABLET PO SCH ×2 (10:28→21:39)
[2021-09-02] MEDS: DOCUSATE SODIUM 100 MG CAPSULE PO SCH ×2 (10:28→21:39)
[2021-09-02] MEDS: levETIRAcetam 500 MG TABLET PO SCH ×2 (10:29→21:40)
[2021-09-02] MEDS: PHENYTOIN ER 100 MG CAPSULE PO SCH ×3 (10:29→21:39)
[2021-09-02] MEDS ORDERED: POTASSIUM CHLORIDE 20 MEQ TABLET PO ONE (15:54)
[2021-09-02] MEDS: ENOXAPARIN 40 MG/0.4 ML SYRINGE SUBCUT SCH (17:45)
[2021-09-02] MEDS ORDERED: ALUMINUM/MAGNES/SIMETH MAX STR 30 ML UDCUP PO PRN (19:29)
[2021-09-02] MEDS: POTASSIUM CHLORIDE 20 MEQ TABLET PO PRN (21:40)
[2021-09-03] MEDS: MEMANTINE 5 MG TABLET PO SCH (08:20)
[2021-09-03] MEDS: PHENYTOIN ER 100 MG CAPSULE PO SCH ×2 (08:20→14:33)
[2021-09-03] MEDS: FAMOTIDINE 20 MG TABLET PO SCH (08:20)
[2021-09-03] MEDS: DOCUSATE SODIUM 100 MG CAPSULE PO SCH (08:20)
[2021-09-03] MEDS: QUEtiapine 25 MG TABLET PO SCH (08:20)
[2021-09-03] MEDS: levETIRAcetam 500 MG TABLET PO SCH (08:22)
[2021-09-03 15:55] VITALS: BP 123/72
== END 2021-09-03 17:19 | disposition home health service (06) ==
LOC: EDBD → EDUNIT# → N.5E 16:34 → N.ED 16:34 → N.5E 23:30
PROVIDERS: ADMIT Internal Medicine; ATTEND Internal Medicine

== ENCOUNTER 2021-12-29 17:22 | Inpatient (IN) ==
[2021-12-29] MEDS ORDERED: LORazepam 2 MG/1 ML VIAL IV STA ×2 (17:50→18:16)
[2021-12-29] MEDS ORDERED: LORazepam 2 MG/1 ML VIAL ONE (17:52)
[2021-12-29 18:04] LABS: Basophils % 0.6 % (0.0-0.8); Eosinophils # 0.2 10*3/uL (0.0-0.87); Eosinophils % 4.9 % (0.00-10.9); Hematocrit 40.1 VOL% (42.0-52.0); Hemoglobin 13.7 GM/DL (14.0-18.0); Lymphocytes # 2.5 10*3/uL (1.4-4.0); Lymphocytes % 53.5 % (21.2-54.2); Mean Corpuscular HGB Conc 34.2 GM/DL (32-36); Mean Corpuscular Volume 89.1 FL (87-102); Mean Platelet Volume 9.8 FL (9.6-12.0); Monocytes # 0.4 10*3/uL (0.11-0.8); Platelet Count 216 T/CUMM (130-400); Red Cell Distribution Width 12.6 % (9.3-17.3); White Blood Count 4.7 T/CUMM (4-12)
[2021-12-29] MEDS ORDERED: levETIRAcetam 500 MG/5 ML VIAL IV ONE (18:20)
[2021-12-29 18:28] LABS: Bilirubin,Total 0.5 MG/DL (0.20-1.00); Calcium 9.6 MG/DL (8.5-10.1); Osmolality,Calculated 272.7 MOS/KG (273-304); Potassium 3.7 MMOL/L (3.5-5.1); Total Protein 7.5 G/DL (6.4-8.2)
[2021-12-29] MEDS ORDERED: SODIUM CHLORIDE 0.9% 500 ML IV STA (18:35)
[2021-12-29 19:08] LABS: Eosinophils 5 % (0-10); Lymphocytes 48 % (20-55); Platelet Estimate Adequate; Total Cells Counted 100
[2021-12-29] MEDS ORDERED: LACOSAMIDE INJ 200 MG in SODIUM CHLORIDE 0.9% 50 ML IV STA (20:04)
[2021-12-29 21:23] LABS: Urine Appearance Clear (Clear); Urine Color Light Yellow (Yellow); Urine Specific Gravity 1.015 (1.001-1.035); Urine pH 6.5 (4.5-8.0)
[2021-12-29 21:24] LABS: Bilirubin,Urine Negative (Negative); Blood, Urine Trace mg/dL (Negative); Glucose,Urine (UA) Negative (Negative); Ketones,Urine Negative (Negative); Nitrite,Urine Negative (Negative); Protein,Urine Negative (Negative); Urine Urobilinogen 0.2 eU/dL (<2.0)
[2021-12-29 21:30] LABS: RBC,Urine 1 /HPF (0-4)
[2021-12-29 21:42] LABS: Barbiturates Screen,Urine Negative (Negative); Benzodiazepines Screen,Urine Negative (Negative); Cannabinoid Screen,Urine Negative (Negative); Opiate Screen,Urine Negative (Negative); Phencyclidine Screen,Urine Negative (Negative)
[2021-12-29] MEDS ORDERED: MORPHINE 2 MG/1 ML SYRINGE IV PRN (23:21)
[2021-12-29] MEDS ORDERED: amLODIPine 5 MG TABLET PO STA (23:21)
[2021-12-29] MEDS ORDERED: ACETAMINOPHEN 325 MG TABLET PO PRN (23:21)
[2021-12-29] MEDS ORDERED: ONDANSETRON 4 MG/2 ML VIAL IV PRN (23:21)
[2021-12-29] MEDS: DOCUSATE SODIUM 100 MG CAPSULE PO SCH (23:45)
[2021-12-29] MEDS: SODIUM CHLORIDE 0.9% 1,000 ML IV SCH (23:45)
[2021-12-30 01:28] LABS: Basophils % 0.2 % (0.0-0.8); Eosinophils # 0.2 10*3/uL (0.0-0.87); Eosinophils % 4.6 % (0.00-10.9); Hematocrit 37.8 VOL% (42.0-52.0); Hemoglobin 12.8 GM/DL (14.0-18.0); Immature Granulocytes % 0.2 %; Immature Granulocytes Absolute 0.01 #; Lymphocytes # 2.1 10*3/uL (1.4-4.0); Lymphocytes % 41.2 % (21.2-54.2); Mean Corpuscular HGB Conc 33.9 GM/DL (32-36); Mean Corpuscular Volume 90.4 FL (87-102); Mean Platelet Volume 9.7 FL (9.6-12.0); Monocytes # 0.4 10*3/uL (0.11-0.8); Neutrophils % 45.8 % (38.7-73.9); Platelet Count 198 T/CUMM (130-400); Red Blood Count 4.18 MC/CUMM (3.8-5.5); Red Cell Distribution Width 12.7 % (9.3-17.3)
[2021-12-30 02:45] LABS: Albumin 3.5 G/DL (3.4-5.0); Bilirubin,Total 0.5 MG/DL (0.20-1.00); Calcium 9.2 MG/DL (8.5-10.1); Osmolality,Calculated 277.3 MOS/KG (273-304); Potassium 3.5 MMOL/L (3.5-5.1); Total Protein 6.7 G/DL (6.4-8.2)
[2021-12-30] MEDS ORDERED: LACOSAMIDE INJ 100 MG in SODIUM CHLORIDE 0.9% 50 ML IV SCH (09:00)
[2021-12-30] MEDS: amLODIPine 10 MG TABLET PO SCH (09:14)
[2021-12-30] MEDS: DOCUSATE SODIUM 100 MG CAPSULE PO SCH ×2 (09:15→20:55)
[2021-12-30] MEDS: PANTOPRAZOLE 40 MG TABLET PO SCH (09:15)
[2021-12-30] MEDS: SODIUM CHLORIDE 0.9% 1,000 ML IV SCH ×2 (12:26→20:55)
[2021-12-30] MEDS: LORazepam 2 MG/1 ML VIAL IV PRN ×2 (13:54→21:05)
[2021-12-30] MEDS ORDERED: chlordiazePOXIDE 25 MG CAPSULE PO SCH (14:00)
[2021-12-30] MEDS: levETIRAcetam 500 MG TABLET PO SCH (20:55)
[2021-12-30] MEDS: LACOSAMIDE 50 MG TABLET PO SCH (20:55)
[2021-12-30] MEDS: QUEtiapine 25 MG TABLET PO SCH (20:55)
[2021-12-30] MEDS ORDERED: MAGNESIUM SULF RIDER 2 GM/50 ML PREMIX IV ONE (21:18)
[2021-12-30] MEDS ORDERED: cloNIDine 0.1 MG TABLET PO ONE (21:21)
[2021-12-31 05:32] LABS: Basophils % 0.4 % (0.0-0.8); Eosinophils # 0.2 10*3/uL (0.0-0.87); Eosinophils % 3.3 % (0.00-10.9); Hematocrit 42.5 VOL% (42.0-52.0); Hemoglobin 14.5 GM/DL (14.0-18.0); Immature Granulocytes % 0.2 %; Immature Granulocytes Absolute 0.01 #; Lymphocytes # 1.9 10*3/uL (1.4-4.0); Mean Corpuscular HGB Conc 34.1 GM/DL (32-36); Mean Corpuscular Volume 88.9 FL (87-102); Mean Platelet Volume 9.8 FL (9.6-12.0); Monocytes # 0.5 10*3/uL (0.11-0.8); Monocytes % 8.9 % (1.7-12.7); Neutrophils % 50.2 % (38.7-73.9); Platelet Count 218 T/CUMM (130-400); Red Blood Count 4.78 MC/CUMM (3.8-5.5); Red Cell Distribution Width 12.7 % (9.3-17.3); White Blood Count 5.1 T/CUMM (4-12)
[2021-12-31 05:54] LABS: Bilirubin,Total 0.6 MG/DL (0.20-1.00); Calcium 9.4 MG/DL (8.5-10.1); Osmolality,Calculated 277.3 MOS/KG (273-304); Potassium 3.3 MMOL/L (3.5-5.1); Total Protein 7.7 G/DL (6.4-8.2)
[2021-12-31] MEDS: LORazepam 2 MG/1 ML VIAL IV PRN ×2 (06:05→22:35)
[2021-12-31] MEDS: THIAMINE 200 MG/2 ML VIAL IV SCH (12:33)
[2021-12-31] MEDS: LACOSAMIDE 50 MG TABLET PO SCH ×2 (12:33→21:10)
[2021-12-31] MEDS: POTASSIUM CHLORIDE 20 MEQ TABLET PO SCH ×2 (12:34→21:10)
[2021-12-31] MEDS: QUEtiapine 25 MG TABLET PO SCH ×2 (12:34→21:10)
[2021-12-31] MEDS: cloNIDine 0.1 MG TABLET PO SCH ×2 (12:34→21:10)
[2021-12-31] MEDS: amLODIPine 10 MG TABLET PO SCH (12:34)
[2021-12-31] MEDS: DOCUSATE SODIUM 100 MG CAPSULE PO SCH ×2 (12:34→21:10)
[2021-12-31] MEDS: levETIRAcetam 500 MG TABLET PO SCH ×2 (12:34→21:10)
[2021-12-31] MEDS: PANTOPRAZOLE 40 MG TABLET PO SCH (12:35)
[2021-12-31] MEDS: SODIUM CHLORIDE 0.9% 1,000 ML IV SCH (18:31)
[2021-12-31] MEDS: PHENYTOIN ER 100 MG CAPSULE PO SCH (21:10)
[2022-01-01] MEDS: SODIUM CHLORIDE 0.9% 1,000 ML IV SCH ×2 (02:45→15:34)
[2022-01-01] MEDS: LORazepam 2 MG/1 ML VIAL IV PRN (04:50)
[2022-01-01 06:16] LABS: Calcium 8.3 MG/DL (8.5-10.1); Potassium 3.8 MMOL/L (3.5-5.1)
[2022-01-01] MEDS: POTASSIUM CHLORIDE 20 MEQ TABLET PO SCH ×2 (10:06→21:23)
[2022-01-01] MEDS: amLODIPine 10 MG TABLET PO SCH (10:06)
[2022-01-01] MEDS: QUEtiapine 25 MG TABLET PO SCH ×2 (10:07→21:23)
[2022-01-01] MEDS: THIAMINE 200 MG/2 ML VIAL IV SCH (10:07)
[2022-01-01] MEDS: PHENYTOIN ER 100 MG CAPSULE PO SCH ×3 (10:07→21:22)
[2022-01-01] MEDS: levETIRAcetam 500 MG TABLET PO SCH ×2 (10:08→21:23)
[2022-01-01] MEDS: PANTOPRAZOLE 40 MG TABLET PO SCH (10:09)
[2022-01-01] MEDS: LACOSAMIDE 50 MG TABLET PO SCH ×2 (10:09→21:22)
[2022-01-01] MEDS: DOCUSATE SODIUM 100 MG CAPSULE PO SCH ×2 (10:13→21:24)
[2022-01-01] MEDS: cloNIDine 0.1 MG TABLET PO SCH ×2 (10:14→21:25)
[2022-01-02] MEDS: SODIUM CHLORIDE 0.9% 1,000 ML IV SCH ×2 (01:01→10:08)
[2022-01-02] MEDS: THIAMINE 200 MG/2 ML VIAL IV SCH (09:32)
[2022-01-02 09:44] LABS: INR 0.9; PT Patient Result 10.1 SECS (10.5-12.0)
[2022-01-02] MEDS ORDERED: THIAMINE 200 MG/2 ML VIAL IV ONE (10:00)
[2022-01-02] MEDS: LACOSAMIDE 50 MG TABLET PO SCH ×2 (10:05→23:06)
[2022-01-02] MEDS: levETIRAcetam 500 MG TABLET PO SCH ×2 (10:06→23:07)
[2022-01-02] MEDS: DOCUSATE SODIUM 100 MG CAPSULE PO SCH ×2 (10:06→23:07)
[2022-01-02] MEDS: POTASSIUM CHLORIDE 20 MEQ TABLET PO SCH ×2 (10:06→23:11)
[2022-01-02] MEDS: PANTOPRAZOLE 40 MG TABLET PO SCH (10:06)
[2022-01-02] MEDS: amLODIPine 10 MG TABLET PO SCH (10:06)
[2022-01-02] MEDS: PHENYTOIN ER 100 MG CAPSULE PO SCH ×3 (10:07→23:07)
[2022-01-02] MEDS: QUEtiapine 25 MG TABLET PO SCH ×2 (10:07→23:07)
[2022-01-02] MEDS: cloNIDine 0.1 MG TABLET PO SCH ×2 (10:07→23:07)
[2022-01-02 16:43] LABS: Glucose,CSF 68 MG/DL (40-70)
[2022-01-02 16:54] LABS: Appearance,CSF Clear; Lymphocytes,CSF 89 %; Monocytes,CSF 11 %; Red Blood Cell,CSF 7 C/CUMM; White Blood Cell,CSF 62 C/CUMM
[2022-01-02 17:54] LABS: Alanine Aminotransferase 25 U/L (16-61); Albumin 3.5 G/DL (3.4-5.0); Alkaline Phosphatase 102 U/L (45-117); Aspartate Amino Transferase 21 U/L (0-37); Bilirubin,Total < 0.39 MG/DL (0.20-1.00); Blood Urea Nitrogen 10 MG/DL (7-18); Calcium 9.2 MG/DL (8.5-10.1); Carbon Dioxide 29 MMOL/L (21-32); Chloride 109 MMOL/L (98-107); Estimated Glom Filtration Rate 111 ML/MIN; Glucose 103 MG/DL (74-106); Potassium 4.5 MMOL/L (3.5-5.1); Sodium 143 MMOL/L (136-145); Total Protein 7.5 G/DL (6.4-8.2)
[2022-01-02 18:25] LABS: Basophils % 0.3 % (0.0-0.8); Eosinophils # 0.3 10*3/uL (0.0-0.87); Eosinophils % 3.7 % (0.00-10.9); Hematocrit 38.2 VOL% (42.0-52.0); Immature Granulocytes % 0.3 %; Immature Granulocytes Absolute 0.02 #; Lymphocytes # 1.6 10*3/uL (1.4-4.0); Lymphocytes % 22.7 % (21.2-54.2); Mean Corpuscular Volume 90.5 FL (87-102); Mean Platelet Volume 10.2 FL (9.6-12.0); Monocytes # 0.5 10*3/uL (0.11-0.8); Monocytes % 6.5 % (1.7-12.7); Neutrophils % 66.5 % (38.7-73.9); Platelet Count 216 T/CUMM (130-400); Red Blood Count 4.22 MC/CUMM (3.8-5.5); Red Cell Distribution Width 12.9 % (9.3-17.3); White Blood Count 7.1 T/CUMM (4-12)
[2022-01-02] MEDS: LORazepam 2 MG/1 ML VIAL IM SCH (23:18)
[2022-01-03 06:00] LABS: Basophils % 0.3 % (0.0-0.8); Eosinophils # 0.3 10*3/uL (0.0-0.87); Hematocrit 42.1 VOL% (42.0-52.0); Immature Granulocytes % 0.2 %; Immature Granulocytes Absolute 0.01 #; Lymphocytes # 1.9 10*3/uL (1.4-4.0); Lymphocytes % 29.6 % (21.2-54.2); Mean Corpuscular HGB Conc 33.3 GM/DL (32-36); Mean Corpuscular Volume 90.9 FL (87-102); Mean Platelet Volume 10.2 FL (9.6-12.0); Monocytes # 0.6 10*3/uL (0.11-0.8); Neutrophils % 55.9 % (38.7-73.9); Platelet Count 176 T/CUMM (130-400); Red Blood Count 4.63 MC/CUMM (3.8-5.5); White Blood Count 6.3 T/CUMM (4-12)
[2022-01-03] MEDS: LORazepam 2 MG/1 ML VIAL IM SCH ×2 (06:13→16:02)
[2022-01-03 06:22] LABS: Calcium 9.8 MG/DL (8.5-10.1); Osmolality,Calculated 273.7 MOS/KG (273-304); Potassium 3.9 MMOL/L (3.5-5.1)
[2022-01-03] MEDS: DOCUSATE SODIUM 100 MG CAPSULE PO SCH ×2 (10:11→22:17)
[2022-01-03] MEDS: cloNIDine 0.1 MG TABLET PO SCH ×2 (10:11→22:19)
[2022-01-03] MEDS: PHENYTOIN ER 100 MG CAPSULE PO SCH ×3 (10:11→22:18)
[2022-01-03] MEDS: POTASSIUM CHLORIDE 20 MEQ TABLET PO SCH ×2 (10:11→22:17)
[2022-01-03] MEDS: QUEtiapine 25 MG TABLET PO SCH ×2 (10:11→22:16)
[2022-01-03] MEDS: THIAMINE 100 MG TABLET PO SCH (10:12)
[2022-01-03] MEDS: PANTOPRAZOLE 40 MG TABLET PO SCH (10:12)
[2022-01-03] MEDS: LACOSAMIDE 50 MG TABLET PO SCH ×2 (10:12→22:17)
[2022-01-03] MEDS: levETIRAcetam 500 MG TABLET PO SCH ×2 (10:12→22:16)
[2022-01-03] MEDS: amLODIPine 10 MG TABLET PO SCH (10:12)
[2022-01-03] MEDS ORDERED: LORazepam 2 MG/1 ML VIAL IM PRN (15:52)
[2022-01-04] MEDS: LORazepam 2 MG/1 ML VIAL IV PRN (07:38)
[2022-01-04] MEDS: PANTOPRAZOLE 40 MG TABLET PO SCH (08:53)
[2022-01-04] MEDS: levETIRAcetam 500 MG TABLET PO SCH ×2 (08:53→23:08)
[2022-01-04] MEDS: LACOSAMIDE 50 MG TABLET PO SCH ×2 (08:53→23:10)
[2022-01-04] MEDS: PHENYTOIN ER 100 MG CAPSULE PO SCH ×3 (08:54→23:09)
[2022-01-04] MEDS: POTASSIUM CHLORIDE 20 MEQ TABLET PO SCH ×2 (08:54→23:09)
[2022-01-04] MEDS: THIAMINE 100 MG TABLET PO SCH (08:54)
[2022-01-04] MEDS: QUEtiapine 25 MG TABLET PO SCH ×2 (08:54→23:10)
[2022-01-04] MEDS: cloNIDine 0.1 MG TABLET PO SCH ×2 (08:54→23:10)
[2022-01-04] MEDS: amLODIPine 10 MG TABLET PO SCH (08:54)
[2022-01-04] MEDS: DOCUSATE SODIUM 100 MG CAPSULE PO SCH ×2 (08:55→23:08)
[2022-01-04 10:58] LABS: Basophils % 0.4 % (0.0-0.8); Eosinophils # 0.3 10*3/uL (0.0-0.87); Eosinophils % 5.3 % (0.00-10.9); Hematocrit 38.4 VOL% (42.0-52.0); Hemoglobin 12.8 GM/DL (14.0-18.0); Immature Granulocytes % 0.2 %; Immature Granulocytes Absolute 0.01 #; Lymphocytes # 1.4 10*3/uL (1.4-4.0); Lymphocytes % 28.7 % (21.2-54.2); Mean Corpuscular HGB Conc 33.3 GM/DL (32-36); Mean Corpuscular Volume 91.2 FL (87-102); Mean Platelet Volume 10.3 FL (9.6-12.0); Monocytes # 0.5 10*3/uL (0.11-0.8); Monocytes % 10.6 % (1.7-12.7); Neutrophils % 54.8 % (38.7-73.9); Platelet Count 221 T/CUMM (130-400); Red Blood Count 4.21 MC/CUMM (3.8-5.5); White Blood Count 4.7 T/CUMM (4-12)
[2022-01-04 11:30] LABS: Alanine Aminotransferase 21 U/L (16-61); Albumin 3.2 G/DL (3.4-5.0); Alkaline Phosphatase 80 U/L (45-117); Aspartate Amino Transferase 23 U/L (0-37); Bilirubin,Total < 0.39 MG/DL (0.20-1.00); Blood Urea Nitrogen 19 MG/DL (7-18); Calcium 9.1 MG/DL (8.5-10.1); Carbon Dioxide 29 MMOL/L (21-32); Chloride 109 MMOL/L (98-107); Estimated Glom Filtration Rate 116 ML/MIN; Glucose 117 MG/DL (74-106); Osmolality,Calculated 283.3 MOS/KG (273-304); Potassium 4.1 MMOL/L (3.5-5.1); Sodium 141 MMOL/L (136-145); Total Protein 6.7 G/DL (6.4-8.2)
[2022-01-04 22:27] LABS: VDRL Spinal Fluid Negative (Negative)
[2022-01-05 07:59] LABS: Basophils % 0.6 % (0.0-0.8); Eosinophils # 0.3 10*3/uL (0.0-0.87); Eosinophils % 5.7 % (0.00-10.9); Hematocrit 40.8 VOL% (42.0-52.0); Hemoglobin 13.4 GM/DL (14.0-18.0); Immature Granulocytes % 0.2 %; Immature Granulocytes Absolute 0.01 #; Lymphocytes # 2.3 10*3/uL (1.4-4.0); Lymphocytes % 44.3 % (21.2-54.2); Mean Corpuscular HGB Conc 32.8 GM/DL (32-36); Mean Corpuscular Volume 92.1 FL (87-102); Mean Platelet Volume 10.9 FL (9.6-12.0); Monocytes # 0.5 10*3/uL (0.11-0.8); Monocytes % 10.4 % (1.7-12.7); Neutrophils % 38.8 % (38.7-73.9); Platelet Count 208 T/CUMM (130-400); Red Blood Count 4.43 MC/CUMM (3.8-5.5); White Blood Count 5.1 T/CUMM (4-12)
[2022-01-05 08:30] LABS: Alanine Aminotransferase 25 U/L (16-61); Albumin 3.6 G/DL (3.4-5.0); Alkaline Phosphatase 89 U/L (45-117); Aspartate Amino Transferase 26 U/L (0-37); Bilirubin,Total < 0.39 MG/DL (0.20-1.00); Blood Urea Nitrogen 17 MG/DL (7-18); Calcium 9.5 MG/DL (8.5-10.1); Carbon Dioxide 30 MMOL/L (21-32); Chloride 106 MMOL/L (98-107); Estimated Glom Filtration Rate 111 ML/MIN; Glucose 95 MG/DL (74-106); Osmolality,Calculated 282.3 MOS/KG (273-304); Potassium 4.3 MMOL/L (3.5-5.1); Sodium 141 MMOL/L (136-145); Total Protein 7.5 G/DL (6.4-8.2)
[2022-01-05] MEDS: QUEtiapine 25 MG TABLET PO SCH ×2 (09:53→23:02)
[2022-01-05] MEDS: POTASSIUM CHLORIDE 20 MEQ TABLET PO SCH ×2 (09:53→23:02)
[2022-01-05] MEDS: PHENYTOIN ER 100 MG CAPSULE PO SCH ×3 (09:53→23:02)
[2022-01-05] MEDS: cloNIDine 0.1 MG TABLET PO SCH ×2 (09:53→23:03)
[2022-01-05] MEDS: PANTOPRAZOLE 40 MG TABLET PO SCH (09:53)
[2022-01-05] MEDS: DOCUSATE SODIUM 100 MG CAPSULE PO SCH ×2 (09:53→23:02)
[2022-01-05] MEDS: THIAMINE 100 MG TABLET PO SCH (09:53)
[2022-01-05] MEDS: amLODIPine 10 MG TABLET PO SCH (09:53)
[2022-01-05] MEDS: LACOSAMIDE 50 MG TABLET PO SCH ×2 (09:54→23:01)
[2022-01-05] MEDS: levETIRAcetam 500 MG TABLET PO SCH ×2 (09:54→23:00)
[2022-01-05] MEDS: LORazepam 2 MG/1 ML VIAL IV PRN (10:22)
[2022-01-05 13:51] LABS: Levetiracetam (Keppra) 34.2 mcg/mL
[2022-01-05] MEDS: MAGNESIUM CHLORIDE 64 MG TABLET PO SCH (15:43)
[2022-01-06] MEDS: PHENYTOIN ER 100 MG CAPSULE PO SCH ×3 (09:19→21:08)
[2022-01-06] MEDS: PANTOPRAZOLE 40 MG TABLET PO SCH (09:19)
[2022-01-06] MEDS: DOCUSATE SODIUM 100 MG CAPSULE PO SCH ×2 (09:19→21:09)
[2022-01-06] MEDS: levETIRAcetam 500 MG TABLET PO SCH ×2 (09:19→21:09)
[2022-01-06] MEDS: THIAMINE 100 MG TABLET PO SCH (09:19)
[2022-01-06] MEDS: QUEtiapine 25 MG TABLET PO SCH ×2 (09:20→21:09)
[2022-01-06] MEDS: MAGNESIUM CHLORIDE 64 MG TABLET PO SCH (09:20)
[2022-01-06] MEDS: cloNIDine 0.1 MG TABLET PO SCH ×2 (09:20→21:08)
[2022-01-06] MEDS: POTASSIUM CHLORIDE 20 MEQ TABLET PO SCH ×2 (09:20→21:08)
[2022-01-06] MEDS: amLODIPine 10 MG TABLET PO SCH (09:20)
[2022-01-06] MEDS: LACOSAMIDE 50 MG TABLET PO SCH ×2 (09:20→21:08)
[2022-01-06] MEDS: MENTHOL/ZINC OXIDE OINT 71 GM JAR TOP SCH ×2 (16:43→21:08)
[2022-01-07] MEDS ORDERED: MAGNESIUM SULF RIDER 2 GM/50 ML PREMIX IV ONE (01:56)
[2022-01-07] MEDS: DOCUSATE SODIUM 100 MG CAPSULE PO SCH (08:32)
[2022-01-07] MEDS: QUEtiapine 25 MG TABLET PO SCH (08:32)
[2022-01-07] MEDS: levETIRAcetam 500 MG TABLET PO SCH (08:32)
[2022-01-07] MEDS: PHENYTOIN ER 100 MG CAPSULE PO SCH (08:32)
[2022-01-07] MEDS: POTASSIUM CHLORIDE 20 MEQ TABLET PO SCH (08:32)
[2022-01-07] MEDS: PANTOPRAZOLE 40 MG TABLET PO SCH (08:32)
[2022-01-07] MEDS: LACOSAMIDE 50 MG TABLET PO SCH (08:33)
[2022-01-07] MEDS: amLODIPine 10 MG TABLET PO SCH (08:33)
[2022-01-07] MEDS: MAGNESIUM CHLORIDE 64 MG TABLET PO SCH (08:33)
[2022-01-07] MEDS: cloNIDine 0.1 MG TABLET PO SCH (08:33)
[2022-01-07] MEDS: THIAMINE 100 MG TABLET PO SCH (08:33)
[2022-01-07] MEDS: MENTHOL/ZINC OXIDE OINT 71 GM JAR TOP SCH (08:38)
[2022-01-07 11:46] VITALS: BP 111/85
[2022-01-08 21:51] LABS: Phenytoin Free Serum < 0.8 mcg/mL (1.0 - 2.0); Phenytoin Total Serum (MAYO) 4.6 mcg/mL
== END 2022-01-07 14:14 | disposition home health service (06) | DRG 101 ==
LOC: N.EDINP 17:22 → N.ED 17:22 → N.5E 12-30 10:43
PROVIDERS: ADMIT Internal Medicine; ATTEND Internal Medicine

== ENCOUNTER 2022-03-01 10:46 | Inpatient (IN) ==
[2022-03-01 11:45] LABS: Basophils % 0.3 % (0.0-0.8); Eosinophils % 0.3 % (0.00-10.9); Hematocrit 37.8 VOL% (42.0-52.0); Immature Granulocytes % 0.3 %; Immature Granulocytes Absolute 0.01 #; Lymphocytes # 1.5 10*3/uL (1.4-4.0); Lymphocytes % 38.5 % (21.2-54.2); Mean Corpuscular HGB Conc 34.4 GM/DL (32-36); Mean Corpuscular Volume 90.2 FL (87-102); Mean Platelet Volume 10.2 FL (9.6-12.0); Monocytes # 0.6 10*3/uL (0.11-0.8); Monocytes % 15.9 % (1.7-12.7); Neutrophils % 44.7 % (38.7-73.9); Platelet Count 144 T/CUMM (130-400); Red Blood Count 4.19 MC/CUMM (3.8-5.5)
[2022-03-01 11:51] LABS: Band Neutrophils 1 % (0-10); Lymphocytes 43 % (20-55); Platelet Estimate Adequate; Total Cells Counted 100
[2022-03-01 12:00] LABS: Alanine Aminotransferase 30 U/L (16-61); Albumin 3.6 G/DL (3.4-5.0); Alkaline Phosphatase 96 U/L (45-117); Aspartate Amino Transferase 19 U/L (0-37); Bilirubin,Total < 0.39 MG/DL (0.20-1.00); Blood Urea Nitrogen 11 MG/DL (7-18); Calcium 8.7 MG/DL (8.5-10.1); Carbon Dioxide 27 MMOL/L (21-32); Chloride 102 MMOL/L (98-107); Glucose 98 MG/DL (74-106); Osmolality,Calculated 271.8 MOS/KG (273-304); Potassium 3.6 MMOL/L (3.5-5.1); Sodium 137 MMOL/L (136-145); Total Protein 6.9 G/DL (6.4-8.2)
[2022-03-01] MEDS ORDERED: ACETAMINOPHEN 325 MG TABLET PO PRN (15:01)
[2022-03-01] MEDS ORDERED: ONDANSETRON 4 MG/2 ML VIAL IV PRN (15:01)
[2022-03-01] MEDS: SODIUM CHLORIDE 0.45% 1,000 ML IV SCH (16:40)
[2022-03-01 18:06] LABS: Calcium 8.5 MG/DL (8.5-10.1); Osmolality,Calculated 271.8 MOS/KG (273-304); Potassium 3.6 MMOL/L (3.5-5.1)
[2022-03-01] MEDS: cloNIDine 0.1 MG TABLET PO SCH ×2 (20:58)
[2022-03-01] MEDS: levETIRAcetam 500 MG TABLET PO SCH (20:58)
[2022-03-01] MEDS: FAMOTIDINE 20 MG TABLET PO SCH (20:58)
[2022-03-01] MEDS: LACOSAMIDE 50 MG TABLET PO SCH (20:58)
[2022-03-01] MEDS: QUEtiapine 25 MG TABLET PO SCH (20:58)
[2022-03-01] MEDS: DOCUSATE SODIUM 100 MG CAPSULE PO SCH (20:58)
[2022-03-02] MEDS: SODIUM CHLORIDE 0.45% 1,000 ML IV SCH ×3 (02:55→18:32)
[2022-03-02 05:20] LABS: Basophils % 0.3 % (0.0-0.8); Hematocrit 39.1 VOL% (42.0-52.0); Immature Granulocytes % 0.3 %; Immature Granulocytes Absolute 0.01 #; Lymphocytes # 1.3 10*3/uL (1.4-4.0); Lymphocytes % 46.4 % (21.2-54.2); Mean Corpuscular HGB Conc 33.2 GM/DL (32-36); Mean Corpuscular Volume 91.1 FL (87-102); Mean Platelet Volume 10.9 FL (9.6-12.0); Monocytes # 0.5 10*3/uL (0.11-0.8); Platelet Count 121 T/CUMM (130-400); Red Blood Count 4.29 MC/CUMM (3.8-5.5); White Blood Count 2.9 T/CUMM (4-12)
[2022-03-02 05:50] LABS: Alanine Aminotransferase 27 U/L (16-61); Albumin 3.2 G/DL (3.4-5.0); Alkaline Phosphatase 84 U/L (45-117); Aspartate Amino Transferase 16 U/L (0-37); Bilirubin,Total < 0.39 MG/DL (0.20-1.00); Blood Urea Nitrogen 9 MG/DL (7-18); Calcium 8.6 MG/DL (8.5-10.1); Carbon Dioxide 24 MMOL/L (21-32); Chloride 105 MMOL/L (98-107); Glucose 80 MG/DL (74-106); Osmolality,Calculated 272.7 MOS/KG (273-304); Potassium 3.6 MMOL/L (3.5-5.1); Sodium 138 MMOL/L (136-145); Total Protein 6.6 G/DL (6.4-8.2)
[2022-03-02 06:15] LABS: Eosinophils 1 % (0-10); Lymphocytes 48 % (20-55); Total Cells Counted 100
[2022-03-02 06:16] LABS: Atypical Lymphocytes 1+; Platelet Estimate Normal
[2022-03-02 06:17] LABS: Hypochromia 1+
[2022-03-02] MEDS: cloNIDine 0.1 MG TABLET PO SCH ×2 (09:24→20:37)
[2022-03-02] MEDS: amLODIPine 10 MG TABLET PO SCH (09:24)
[2022-03-02] MEDS: PANTOPRAZOLE 40 MG TABLET PO SCH (09:24)
[2022-03-02] MEDS: LACOSAMIDE 50 MG TABLET PO SCH ×2 (09:24→20:36)
[2022-03-02] MEDS: levETIRAcetam 500 MG TABLET PO SCH ×2 (09:25→20:36)
[2022-03-02] MEDS: QUEtiapine 25 MG TABLET PO SCH ×2 (09:25→20:37)
[2022-03-02] MEDS: FAMOTIDINE 20 MG TABLET PO SCH ×2 (09:25→20:37)
[2022-03-02] MEDS: DOCUSATE SODIUM 100 MG CAPSULE PO SCH ×2 (10:30→20:37)
[2022-03-02 17:15] LABS: Barbiturates Screen,Urine Negative (Negative); Benzodiazepines Screen,Urine Negative (Negative); Cannabinoid Screen,Urine Negative (Negative); Opiate Screen,Urine Negative (Negative); Phencyclidine Screen,Urine Negative (Negative)
[2022-03-03] MEDS: SODIUM CHLORIDE 0.45% 1,000 ML IV SCH ×3 (02:38→21:43)
[2022-03-03 04:27] LABS: Calcium 8.2 MG/DL (8.5-10.1); Osmolality,Calculated 267.1 MOS/KG (273-304); Potassium 4.3 MMOL/L (3.5-5.1)
[2022-03-03 06:07] LABS: Eosinophils # 0.1 10*3/uL (0.0-0.87); Eosinophils % 3.5 % (0.00-10.9); Hematocrit 37.2 VOL% (42.0-52.0); Hemoglobin 12.5 GM/DL (14.0-18.0); Lymphocytes # 1.1 10*3/uL (1.4-4.0); Lymphocytes % 48.2 % (21.2-54.2); Mean Corpuscular HGB Conc 33.6 GM/DL (32-36); Mean Corpuscular Volume 90.1 FL (87-102); Mean Platelet Volume 10.5 FL (9.6-12.0); Monocytes # 0.4 10*3/uL (0.11-0.8); Monocytes % 16.8 % (1.7-12.7); Neutrophils % 31.5 % (38.7-73.9); Platelet Count 118 T/CUMM (130-400); Red Blood Count 4.13 MC/CUMM (3.8-5.5); Red Cell Distribution Width 12.1 % (9.3-17.3); White Blood Count 2.3 T/CUMM (4-12)
[2022-03-03 06:47] LABS: Eosinophils 1 % (0-10); Lymphocytes 54 % (20-55); Total Cells Counted 100
[2022-03-03 06:48] LABS: Platelet Estimate Normal
[2022-03-03] MEDS: DOCUSATE SODIUM 100 MG CAPSULE PO SCH ×2 (09:51→22:40)
[2022-03-03] MEDS: cloNIDine 0.1 MG TABLET PO SCH ×2 (09:51→22:40)
[2022-03-03] MEDS: levETIRAcetam 500 MG TABLET PO SCH ×2 (09:51→22:40)
[2022-03-03] MEDS: amLODIPine 10 MG TABLET PO SCH (09:52)
[2022-03-03] MEDS: LACOSAMIDE 50 MG TABLET PO SCH ×2 (09:53→22:39)
[2022-03-03] MEDS: QUEtiapine 25 MG TABLET PO SCH ×2 (09:53→22:39)
[2022-03-03] MEDS: FAMOTIDINE 20 MG TABLET PO SCH ×2 (09:54→22:40)
[2022-03-03] MEDS: PANTOPRAZOLE 40 MG TABLET PO SCH (09:59)
[2022-03-03] MEDS: SODIUM CHLORIDE 0.9% 1,000 ML IV SCH (22:39)
[2022-03-04 08:24] LABS: Calcium 8.3 MG/DL (8.5-10.1); Osmolality,Calculated 269.8 MOS/KG (273-304); Potassium 3.6 MMOL/L (3.5-5.1)
[2022-03-04 08:38] LABS: Eosinophils # 0.1 10*3/uL (0.0-0.87); Eosinophils % 3.8 % (0.00-10.9); Hematocrit 38.8 VOL% (42.0-52.0); Hemoglobin 13.3 GM/DL (14.0-18.0); Lymphocytes # 1.1 10*3/uL (1.4-4.0); Lymphocytes % 46.2 % (21.2-54.2); Mean Corpuscular HGB Conc 34.3 GM/DL (32-36); Mean Platelet Volume 10.6 FL (9.6-12.0); Monocytes # 0.3 10*3/uL (0.11-0.8); Monocytes % 10.7 % (1.7-12.7); Neutrophils % 39.3 % (38.7-73.9); Platelet Count 125 T/CUMM (130-400); Red Blood Count 4.41 MC/CUMM (3.8-5.5); Red Cell Distribution Width 11.9 % (9.3-17.3); White Blood Count 2.3 T/CUMM (4-12)
[2022-03-04] MEDS: levETIRAcetam 500 MG TABLET PO SCH ×2 (08:40→20:58)
[2022-03-04] MEDS: cloNIDine 0.1 MG TABLET PO SCH ×2 (08:40→20:58)
[2022-03-04] MEDS: PANTOPRAZOLE 40 MG TABLET PO SCH (08:40)
[2022-03-04] MEDS: LACOSAMIDE 50 MG TABLET PO SCH ×2 (08:41→20:59)
[2022-03-04] MEDS: DOCUSATE SODIUM 100 MG CAPSULE PO SCH ×2 (08:41→20:58)
[2022-03-04] MEDS: FAMOTIDINE 20 MG TABLET PO SCH ×2 (08:41→20:59)
[2022-03-04] MEDS: amLODIPine 10 MG TABLET PO SCH (08:41)
[2022-03-04] MEDS: QUEtiapine 25 MG TABLET PO SCH ×2 (08:42→20:59)
[2022-03-04] MEDS: SODIUM CHLORIDE 0.9% 1,000 ML IV SCH (14:35)
[2022-03-04] MEDS ORDERED: NON-FORMULARY MEDICATION (Docusate Sodium Cap [Colace Cap] 100 MG) PO SCH (21:00)
[2022-03-04] MEDS ORDERED: QUEtiapine 25 MG TABLET PO SCH (21:00)
[2022-03-05] MEDS: SODIUM CHLORIDE 0.9% 1,000 ML IV SCH ×3 (01:43→16:00)
[2022-03-05] MEDS ORDERED: MAGNESIUM SULF RIDER 2 GM/50 ML PREMIX IV ONE (10:00)
[2022-03-05] MEDS: cloNIDine 0.1 MG TABLET PO SCH ×2 (10:10→21:12)
[2022-03-05] MEDS: LACOSAMIDE 50 MG TABLET PO SCH ×2 (10:10→21:11)
[2022-03-05] MEDS: FAMOTIDINE 20 MG TABLET PO SCH ×2 (10:10→21:12)
[2022-03-05] MEDS: levETIRAcetam 500 MG TABLET PO SCH ×2 (10:10→21:11)
[2022-03-05] MEDS: PANTOPRAZOLE 40 MG TABLET PO SCH (10:10)
[2022-03-05] MEDS: DOCUSATE SODIUM 100 MG CAPSULE PO SCH ×2 (10:10→21:11)
[2022-03-05] MEDS: amLODIPine 10 MG TABLET PO SCH (10:10)
[2022-03-05] MEDS: THIAMINE 100 MG TABLET PO SCH (10:10)
[2022-03-05] MEDS: QUEtiapine 25 MG TABLET PO SCH ×3 (10:10→21:11)
[2022-03-06] MEDS: SODIUM CHLORIDE 0.9% 1,000 ML IV SCH ×3 (01:54→18:25)
[2022-03-06 07:00] LABS: Eosinophils # 0.1 10*3/uL (0.0-0.87); Eosinophils % 3.5 % (0.00-10.9); Hematocrit 38.3 VOL% (42.0-52.0); Lymphocytes # 1.3 10*3/uL (1.4-4.0); Lymphocytes % 49.2 % (21.2-54.2); Mean Corpuscular HGB Conc 33.9 GM/DL (32-36); Mean Corpuscular Volume 89.1 FL (87-102); Mean Platelet Volume 10.5 FL (9.6-12.0); Monocytes # 0.3 10*3/uL (0.11-0.8); Neutrophils % 36.3 % (38.7-73.9); Platelet Count 136 T/CUMM (130-400); Red Cell Distribution Width 12.2 % (9.3-17.3); White Blood Count 2.5 T/CUMM (4-12)
[2022-03-06 07:18] LABS: Eosinophils 5 % (0-10); Lymphocytes 58 % (20-55); Total Cells Counted 100
[2022-03-06 07:19] LABS: Platelet Estimate Normal
[2022-03-06 07:27] LABS: Calcium 8.3 MG/DL (8.5-10.1); Osmolality,Calculated 274.5 MOS/KG (273-304); Potassium 3.7 MMOL/L (3.5-5.1)
[2022-03-06] MEDS: QUEtiapine 25 MG TABLET PO SCH ×2 (11:31→16:08)
[2022-03-06] MEDS: FAMOTIDINE 20 MG TABLET PO SCH (11:31)
[2022-03-06] MEDS: cloNIDine 0.1 MG TABLET PO SCH (11:31)
[2022-03-06] MEDS: DOCUSATE SODIUM 100 MG CAPSULE PO SCH (11:31)
[2022-03-06] MEDS: amLODIPine 10 MG TABLET PO SCH (11:31)
[2022-03-06] MEDS: levETIRAcetam 500 MG TABLET PO SCH (11:31)
[2022-03-06] MEDS: PANTOPRAZOLE 40 MG TABLET PO SCH (11:31)
[2022-03-06] MEDS: LACOSAMIDE 50 MG TABLET PO SCH (11:32)
[2022-03-06] MEDS: THIAMINE 100 MG TABLET PO SCH (11:32)
[2022-03-06] MEDS ORDERED: LORazepam 2 MG/1 ML VIAL IV ONE ×2 (13:05→13:17)
[2022-03-06] MEDS ORDERED: LORazepam 2 MG/1 ML VIAL ONE (13:11)
[2022-03-06] MEDS ORDERED: MAGNESIUM SULF RIDER 2 GM/50 ML PREMIX IV ONE (15:22)
[2022-03-07] MEDS: FAMOTIDINE 20 MG TABLET PO SCH ×2 (01:35→08:57)
[2022-03-07] MEDS: cloNIDine 0.1 MG TABLET PO SCH ×2 (01:35→08:57)
[2022-03-07] MEDS: DOCUSATE SODIUM 100 MG CAPSULE PO SCH ×2 (01:36→08:57)
[2022-03-07] MEDS: QUEtiapine 25 MG TABLET PO SCH ×3 (01:36→15:14)
[2022-03-07] MEDS: LACOSAMIDE 50 MG TABLET PO SCH ×2 (01:37→08:57)
[2022-03-07] MEDS ORDERED: hydrALAZINE 20 MG/1 ML VIAL IV PRN (07:57)
[2022-03-07] MEDS: PANTOPRAZOLE 40 MG TABLET PO SCH (08:57)
[2022-03-07] MEDS: amLODIPine 10 MG TABLET PO SCH (08:57)
[2022-03-07] MEDS: THIAMINE 100 MG TABLET PO SCH (08:58)
[2022-03-07] MEDS: LORazepam 2 MG/1 ML VIAL IV PRN ×2 (10:06→16:11)
[2022-03-07] MEDS: cloNIDine 0.2 MG/24 HR PATCH TRANSDERM SCH (10:28)
[2022-03-07] MEDS: SODIUM CHLORIDE 0.9% IV SCH (11:47)
[2022-03-07] MEDS: LEVETIRACETAM IV SCH (11:47)
[2022-03-08] MEDS: SODIUM CHLORIDE 0.9% 1,000 ML IV SCH ×3 (00:19→16:15)
[2022-03-08] MEDS: LEVETIRACETAM IV SCH ×3 (00:20→23:02)
[2022-03-08] MEDS: SODIUM CHLORIDE 0.9% IV SCH ×3 (00:20→23:02)
[2022-03-08] MEDS: LACOSAMIDE 50 MG TABLET PO SCH ×3 (00:32→22:50)
[2022-03-08] MEDS: QUEtiapine 25 MG TABLET PO SCH ×4 (00:33→22:50)
[2022-03-08] MEDS: LORazepam 2 MG/1 ML VIAL IV PRN (02:07)
[2022-03-08] MEDS: FAMOTIDINE 20 MG TABLET PO SCH ×3 (03:54→22:50)
[2022-03-08] MEDS: DOCUSATE SODIUM 100 MG CAPSULE PO SCH ×3 (03:54→22:50)
[2022-03-08] MEDS: cloNIDine 0.1 MG TABLET PO SCH ×3 (03:54→22:49)
[2022-03-08] MEDS: THIAMINE 100 MG TABLET PO SCH (09:31)
[2022-03-08] MEDS: PANTOPRAZOLE 40 MG TABLET PO SCH (09:31)
[2022-03-08] MEDS: amLODIPine 10 MG TABLET PO SCH (09:31)
[2022-03-09] MEDS: SODIUM CHLORIDE 0.9% 1,000 ML IV SCH ×2 (04:55→17:46)
[2022-03-09 06:37] LABS: Basophils % 0.2 % (0.0-0.8); Eosinophils # 0.1 10*3/uL (0.0-0.87); Eosinophils % 1.1 % (0.00-10.9); Hematocrit 39.6 VOL% (42.0-52.0); Hemoglobin 13.8 GM/DL (14.0-18.0); Immature Granulocytes % 0.2 %; Immature Granulocytes Absolute 0.01 #; Lymphocytes # 1.5 10*3/uL (1.4-4.0); Lymphocytes % 31.1 % (21.2-54.2); Mean Corpuscular HGB Conc 34.8 GM/DL (32-36); Mean Corpuscular Volume 86.5 FL (87-102); Mean Platelet Volume 10.4 FL (9.6-12.0); Monocytes # 0.7 10*3/uL (0.11-0.8); Monocytes % 14.5 % (1.7-12.7); Neutrophils % 52.9 % (38.7-73.9); Platelet Count 217 T/CUMM (130-400); Red Blood Count 4.58 MC/CUMM (3.8-5.5); Red Cell Distribution Width 11.9 % (9.3-17.3); White Blood Count 4.8 T/CUMM (4-12)
[2022-03-09 06:44] LABS: Albumin 3.6 G/DL (3.4-5.0); Bilirubin,Total 0.5 MG/DL (0.20-1.00); Calcium 9.3 MG/DL (8.5-10.1); Osmolality,Calculated 268.1 MOS/KG (273-304); Potassium 3.4 MMOL/L (3.5-5.1); Total Protein 7.2 G/DL (6.4-8.2)
[2022-03-09] MEDS: cloNIDine 0.1 MG TABLET PO SCH (09:51)
[2022-03-09] MEDS: PANTOPRAZOLE 40 MG TABLET PO SCH (09:51)
[2022-03-09] MEDS: DOCUSATE SODIUM 100 MG CAPSULE PO SCH (09:51)
[2022-03-09] MEDS: FAMOTIDINE 20 MG TABLET PO SCH (09:51)
[2022-03-09] MEDS: amLODIPine 10 MG TABLET PO SCH (09:51)
[2022-03-09] MEDS: QUEtiapine 25 MG TABLET PO SCH ×2 (09:51→15:28)
[2022-03-09] MEDS: THIAMINE 100 MG TABLET PO SCH (09:52)
[2022-03-09] MEDS: LACOSAMIDE 50 MG TABLET PO SCH (09:52)
[2022-03-09] MEDS: LORazepam 2 MG/1 ML VIAL IV PRN (11:10)
[2022-03-09] MEDS: SODIUM CHLORIDE 0.9% IV SCH ×2 (11:57→23:12)
[2022-03-09] MEDS: LEVETIRACETAM IV SCH ×2 (11:57→23:12)
[2022-03-09] MEDS ORDERED: DIAZEPAM 10 MG/2 ML SYRINGE IM PRN (13:41)
[2022-03-09] MEDS ORDERED: ZINC/COPPER/MANGANESE/SELENIUM 1 ML, MULTIVITAMIN INJ 10 ML in AMINO ACIDS/DEXT/LYTES 4... IV SCH (17:00)
[2022-03-09] MEDS ORDERED: DEXTROSE 10% 1,000 ML IV PRN (17:00)
[2022-03-09] MEDS: METOPROLOL TARTRATE 5 MG/5 ML VIAL IV SCH (17:45)
[2022-03-09] MEDS: PANTOPRAZOLE 40 MG VIAL IV SCH (17:45)
[2022-03-09] MEDS: PHENYTOIN 100 MG/2 ML VIAL IV SCH (17:45)
[2022-03-09] MEDS: FAT EMULSION 20% 250 ML IV SCH (17:48)
[2022-03-10] MEDS: METOPROLOL TARTRATE 5 MG/5 ML VIAL IV SCH ×4 (00:04→17:04)
[2022-03-10] MEDS: PHENYTOIN 100 MG/2 ML VIAL IV SCH ×3 (00:05→16:47)
[2022-03-10 07:45] LABS: Calcium 9.2 MG/DL (8.5-10.1); Phosphorous 3.5 MG/DL (2.5-4.9); Potassium 3.6 MMOL/L (3.5-5.1)
[2022-03-10] MEDS: PANTOPRAZOLE 40 MG VIAL IV SCH (09:51)
[2022-03-10] MEDS: LEVETIRACETAM IV SCH ×2 (12:26→23:13)
[2022-03-10] MEDS: SODIUM CHLORIDE 0.9% IV SCH ×2 (12:26→23:13)
[2022-03-10] MEDS: FAT EMULSION 20% 250 ML IV SCH (16:46)
[2022-03-10] MEDS: ZINC/COPPER/MANGANESE/SELENIUM 1 ML, MULTIVITAMIN INJ 10 ML in AMINO ACIDS/DEXT/LYTES 4... IV SCH (16:47)
[2022-03-11] MEDS: METOPROLOL TARTRATE 5 MG/5 ML VIAL IV SCH ×4 (00:19→18:35)
[2022-03-11] MEDS: PHENYTOIN 100 MG/2 ML VIAL IV SCH ×3 (00:19→21:53)
[2022-03-11 07:17] LABS: Calcium 9.3 MG/DL (8.5-10.1); Osmolality,Calculated 269.1 MOS/KG (273-304); Phosphorous 3.5 MG/DL (2.5-4.9); Potassium 3.7 MMOL/L (3.5-5.1)
[2022-03-11] MEDS: PANTOPRAZOLE 40 MG VIAL IV SCH (09:10)
[2022-03-11] MEDS: SODIUM CHLORIDE 0.9% IV SCH (11:18)
[2022-03-11] MEDS: LEVETIRACETAM IV SCH (11:18)
[2022-03-11] MEDS: FAT EMULSION 20% 250 ML IV SCH (14:08)
[2022-03-11] MEDS: ZINC/COPPER/MANGANESE/SELENIUM 1 ML, MULTIVITAMIN INJ 10 ML in AMINO ACIDS/DEXT/LYTES 4... IV SCH (16:58)
[2022-03-12] MEDS: LEVETIRACETAM IV SCH ×2 (00:02→11:56)
[2022-03-12] MEDS: SODIUM CHLORIDE 0.9% IV SCH ×2 (00:02→11:56)
[2022-03-12] MEDS: METOPROLOL TARTRATE 5 MG/5 ML VIAL IV SCH ×4 (00:03→18:10)
[2022-03-12 04:40] LABS: Basophils % 0.2 % (0.0-0.8); Eosinophils # 0.2 10*3/uL (0.0-0.87); Eosinophils % 3.2 % (0.00-10.9); Hematocrit 34.6 VOL% (42.0-52.0); Hemoglobin 11.9 GM/DL (14.0-18.0); Immature Granulocytes % 0.2 %; Immature Granulocytes Absolute 0.01 #; Lymphocytes # 1.5 10*3/uL (1.4-4.0); Lymphocytes % 24.6 % (21.2-54.2); Mean Corpuscular HGB Conc 34.4 GM/DL (32-36); Mean Corpuscular Volume 87.6 FL (87-102); Mean Platelet Volume 10.1 FL (9.6-12.0); Monocytes # 0.9 10*3/uL (0.11-0.8); Monocytes % 14.8 % (1.7-12.7); Platelet Count 222 T/CUMM (130-400); Red Blood Count 3.95 MC/CUMM (3.8-5.5); Red Cell Distribution Width 11.9 % (9.3-17.3); White Blood Count 5.9 T/CUMM (4-12)
[2022-03-12] MEDS: PANTOPRAZOLE 40 MG VIAL IV SCH (09:23)
[2022-03-12] MEDS: PHENYTOIN 100 MG/2 ML VIAL IV SCH (09:23)
[2022-03-12] MEDS: FAT EMULSION 20% 250 ML IV SCH (16:04)
[2022-03-12] MEDS: PHENYTOIN ER 100 MG CAPSULE PO SCH (21:53)
[2022-03-12] MEDS: levETIRAcetam 500 MG TABLET PO SCH (21:53)
[2022-03-12] MEDS: levETIRAcetam 250 MG TABLET PO SCH (21:54)
[2022-03-13 05:13] LABS: Phosphorous 3.1 MG/DL (2.5-4.9)
[2022-03-13] MEDS: PANTOPRAZOLE 40 MG VIAL IV SCH (08:46)
[2022-03-13] MEDS: levETIRAcetam 250 MG TABLET PO SCH ×2 (08:46→21:52)
[2022-03-13] MEDS: PHENYTOIN ER 100 MG CAPSULE PO SCH ×2 (08:46→21:52)
[2022-03-13] MEDS: levETIRAcetam 500 MG TABLET PO SCH ×2 (08:46→21:53)
[2022-03-13] MEDS: METOPROLOL TARTRATE 5 MG/5 ML VIAL IV SCH (12:20)
[2022-03-13] MEDS: METOPROLOL TARTRATE 25 MG TABLET PO SCH (21:52)
[2022-03-14] MEDS: PANTOPRAZOLE 40 MG TABLET PO SCH (08:31)
[2022-03-14] MEDS: PHENYTOIN ER 100 MG CAPSULE PO SCH ×2 (08:31→21:23)
[2022-03-14] MEDS: amLODIPine 10 MG TABLET PO SCH (08:31)
[2022-03-14] MEDS: levETIRAcetam 250 MG TABLET PO SCH ×2 (08:31→21:11)
[2022-03-14] MEDS: METOPROLOL TARTRATE 25 MG TABLET PO SCH ×2 (08:31→21:11)
[2022-03-14] MEDS: levETIRAcetam 500 MG TABLET PO SCH ×2 (08:31→21:12)
[2022-03-14] MEDS: cloNIDine 0.2 MG/24 HR PATCH TRANSDERM SCH (08:34)
[2022-03-14] MEDS: METOPROLOL TARTRATE 5 MG/5 ML VIAL IV SCH ×2 (09:57→09:58)
[2022-03-14] MEDS ORDERED: FUROSEMIDE 20 MG/2 ML VIAL IV ONE (12:27)
[2022-03-15] MEDS: levETIRAcetam 500 MG TABLET PO SCH (09:05)
[2022-03-15] MEDS: PANTOPRAZOLE 40 MG TABLET PO SCH (09:05)
[2022-03-15] MEDS: amLODIPine 10 MG TABLET PO SCH (09:05)
[2022-03-15] MEDS: levETIRAcetam 250 MG TABLET PO SCH (09:05)
[2022-03-15] MEDS: PHENYTOIN ER 100 MG CAPSULE PO SCH (09:05)
[2022-03-15] MEDS: METOPROLOL TARTRATE 25 MG TABLET PO SCH (09:05)
[2022-03-15 12:31] VITALS: BP 105/70
== END 2022-03-15 14:02 | disposition home health service (06) | DRG 56 ==
LOC: EDUNIT# → EDBD → N.EDINP 10:46 → N.ED 10:46 → OBSVTOIN 15:01 → INTOOBSV 15:01 → N.3E 16:31
PROVIDERS: ADMIT Internal Medicine; ATTEND Internal Medicine